=== PATIENT | female | born 1975 | race Caucasian/White ===

== ENCOUNTER 2016-10-08 13:29 | Outpatient (CLI) | payer OTHER ==
--- NOTE | 2016-10-08 14:06 | Diagnostic Imaging Report ---
[facility] [address] [facility].[address] [address] Report Submission Date: Oct 08, 2016 2:03:07 PM CDT Patient Study Name: MADI TAYLOR Date: Oct 08, 2016 1:37:07 PM CDT Modality Type: CR Gender: F Description: SPINE : 79 Institution: [facility] Physician: GAVIOTA SMITH Sacrum and coccyx-three views CLINICAL HISTORY: Fall on 09/27/2016 persistent pain. FINDINGS: Examination of the sacrum and coccyx in AP, angled and lateral views fails to demonstrate evidence of fracture. Sacroiliac joints are symmetric. Sacral foramina are well defined. There is no lytic or blastic lesion. IMPRESSION: Negative study. Electronically signed on Oct 08, 2016 2:03:07 PM CDT by: Tim ONTIVEROS
== END 2016-10-08 13:30 ==
LOC: RAD 13:29
PROVIDERS: ATTEND Physician Assistant
DX: M54.5 Low back pain (principal)
CPT/HCPCS: 72220